=== PATIENT | female | born 1965 | race Two or more races ===

== ENCOUNTER 2021-01-27 17:17 | Emergency (ER) | payer MEDICARE, OTHER ==
[~2021-01-27] VITALS: Ht 154.9 cm; Wt 57.3 kg
--- NOTE | 2021-01-27 18:40 | NUR ---
LAB IN ROOM NOW WITH PT. X-RAY ON STANDBY OUTSIDE ROOM. PT HAS FAMILY MEMBER WITH HIM TO TRANSLATE.
[2021-01-27 18:57] LABS: BASOPHILS % (AUTO) 0 % (0-1); EOSINOPHILS % (AUTO) 1 % (1-7); LYMPHOCYTES % (AUTO) 10 % (22-44); MEAN CORPUSCULAR HEMOGLOBIN 29.8 pg (27.0-34.8); MEAN CORPUSCULAR HGB CONC 33.8 g/dL (32.4-35.8); MEAN PLATELET VOLUME 9.5 fL (7.4-10.4); MONOCYTES % (AUTO) 9 % (2-9); NEUTROPHILS % (AUTO) 81 % (42-75); PLATELET COUNT 98 x10^3/uL (130-400); RED BLOOD COUNT 4.56 x10^6/uL (3.82-5.3); RED CELL DISTRIBUTION WIDTH 13.1 % (9.6-15.2)
[2021-01-27 19:00] LABS: ALANINE AMINOTRANSFERASE 34 U/L (12-78); ALBUMIN 3.3 g/dL (3.4-5.0); ANION GAP 7 mmol/L (5-15); CALCIUM 8.5 mg/dL (8.5-10.1); CHLORIDE 110 mmol/L (98-107)
[2021-01-27 19:04] LABS: ALKALINE PHOSPHATASE 81 U/L (45-117); BILIRUBIN,TOTAL 0.8 mg/dL (0.2-1.0); TOTAL PROTEIN 7.3 g/dL (6.4-8.2); TROPONIN I 0.035 ng/mL (0.000-0.045)
[2021-01-27 19:41] LABS: MD SCAN
[2021-01-27] MEDS ORDERED: OMNIPAQUE 350 MG/ML, 75ML BOTTLE ONE (20:56)
--- NOTE | 2021-01-27 21:16 | NUR ---
PT BACK FROM CTA, PT A/O X4 WITH FAMILY AT PT SIDE, PT ON MONITOR WITH PT VSS AND PT HAS UNLABORED BREATHING
[2021-01-27 21:42] LABS: MICROSCOPIC AUTO
[2021-01-27 23:22] VITALS: BP 115/74
== END 2021-01-27 23:24 | disposition home or self-care (01) ==
LOC: ED 22:56
DX: I71.2 Thoracic aortic aneurysm, without rupture (principal); R50.9 Fever, unspecified; Z20.822 Contact with and (suspected) exposure to COVID-19; R07.89 Other chest pain; R06.00 Dyspnea, unspecified; R94.31 Abnormal electrocardiogram [ECG] [EKG]
CPT/HCPCS: 36415; 71045; 71275; 80053; 81001; 84145; 84484; 85025; 93005; 99285; Q9967; U0003; U0005

== ENCOUNTER → 2021-02-28 | Outpatient (CLI) | payer MEDICARE, OTHER ==
[~2021-02-28] MED LIST: REGADENOSON 0.4 MG/5 ML SYRINGE ONE
== END | disposition home or self-care (01) ==
LOC: CFH 07:54
PROVIDERS: ATTEND Internal Medicine Cardiovascular Disease
DX: R07.89 Other chest pain (principal); I71.9 Aortic aneurysm of unspecified site, without rupture
CPT/HCPCS: 78452; 93017; A9502; J2785